=== PATIENT | male | born 1960 | race Two or more races ===

== ENCOUNTER 2016-10-01 12:44 | Emergency (ER) | payer MEDICAID, OTHER ==
[~2016-10-01] VITALS: Ht 182.9 cm; Wt 77.1 kg
[2016-10-01] MEDS ORDERED: IBUPROFEN600 MG ORAL (13:32)
--- NOTE | 2016-10-01 13:32 | Emergency Room Report ---
History of Present Illness General Chief Complaint: General Complaint Source: Patient Present Illness HPI 56 YO male c/o left arm weakness and paresthesia after waking up this am. pt. slept on floor at his son's house last night. Patient denies previous injury to the shoulder. Patient does report that he had a history of tunnel syndrome. Patient states that compared to this morning his symptoms have decreased in severity. Patient denies pain. Patient denies fevers chills neck pain chest pain, previous injury to the cervical spine. he denies recent trauma or fall. he denies any color changes to the affected extremity. Denies gross loss of sensation or gross motor movements of the extremities, incontinence of bowel or bladder. Denies CP, Palpitations, LOC, AMS, dizziness, Changes in Vision, Sensation, paresthesias, or a sudden severe headache. Allergies: Coded Allergies: No Known Allergies (Unverified , 10/01/16) Patient History Past Medical History: see triage record Past Surgical History: none Pertinent Family History: none Immunizations: UTD Reviewed Nursing Documentation: PMH: Agreed, PSxH: Agreed Nursing Documentation-PMH Past Medical History: No History, Except For Hx Cardiac Problems: No - CHRONIC BACK PAIN History Of Psychiatric Problem: Yes - ANXIETY Review of Systems All Other Systems: negative except mentioned in HPI Physical Exam Vital Signs Date Time Temp Pulse Resp B/P Pulse Ox O2 Delivery O2 Flow Rate FiO2 10/01/16 13:07 98.2 93 20 111/71 99 Sp02 EP Interpretation: reviewed, normal General Appearance: no apparent distress, alert, GCS 15, non-toxic Head: normocephalic, atraumatic Eyes: bilateral eye PERRL, bilateral eye normal inspection ENT: hearing grossly normal, normal pharynx, no angioedema, normal voice Neck: full range of motion, supple/symm/no masses Respiratory: chest non-tender, lungs clear, normal breath sounds, speaking full sentences Cardiovascular #1: regular rate, rhythm, no edema Cardiovascular #2: 2+ radial (R), 2+ radial (L) Musculoskeletal: back normal, gait/station normal, normal range of motion, non- tender, no calf tenderness, other - left arm weakness, FROM Neurologic: alert, oriented x3, responsive, motor strength/tone normal, sensory intact, cerebellar normal, normal gait, speech normal, no pronator, motor weakness - left arm weakness/delay, negative gusman's Psychiatric: judgement/insight normal, memory normal, mood/affect normal, no suicidal/homicidal ideation Reflexes: 2+ bicep (R), 2+ bicep (L) Skin: normal color, no rash, warm/dry, well hydrated Lymphatic: no adenopathy Medical Decision Making PA Attestation Dr. Robbins is my supervising Physician whom patient management has been discussed with. Diagnostic Impression: Primary Impression: Radial nerve palsy Qualified Codes: G56.32 - Lesion of radial nerve, left upper limb ER Course 56 YO male c/o left arm weakness and paresthesia after waking up this am. pt. slept on floor at his son's house last night. Patient denies previous injury to the shoulder. Patient does report that he had a history of tunnel syndrome. Patient states that compared to this morning his symptoms have decreased in severity. Patient denies pain. Patient denies fevers chills neck pain chest pain, previous injury to the cervical spine. he denies recent trauma or fall. he denies any color changes to the affected extremity Ddx considered but are not limited to Radial nerve palsy, stroke, [place], Fracture , dislocation, contusion, Sprain/Strain/Spasm, Vital signs: are WNL, pt. is afebrile, pt. is non-tachycardic, NAD, non-toxic in appearance. H&PE are most consistent with radial nerve palsy. pulses are 2+ and equal bilaterally. , no facial droop, negative pronator drift. ORDERS: - X-ray not required at this time, no trauma, no bony ttp. ED INTERVENTIONS: - Pt given re-assurance. DISCHARGE: At this time pt. is stable for d/c to home. Will provide printed patient care instructions, and any necessary prescriptions. Care plan and follow up instructions have been discussed with the patient prior to discharge. Last Vital Signs Date Time Temp Pulse Resp B/P Pulse Ox O2 Delivery O2 Flow Rate FiO2 10/01/16 13:07 98.2 93 20 111/71 99 Disposition: HOME, SELF-CARE Condition: Stable Scripts Ibuprofen* (MOTRIN*) 600 Mg Tablet 600 MG ORAL THREE TIMES A DAY, #30 TAB 0 Refills Prov: Hina Luna 10/01/16 Patient Instructions: Radial Nerve Palsy Additional Instructions: Take medications as directed. Follow up with PCP in 3-5 days Return sooner to ED if new symptoms occur, or current symptoms become worse. - Please note that this Emergency Department Report was dictated using [employer] field worker technology software, occasionally this can lead to erroneous entry secondary to interpretation by the dictation equipment. Hina Luna Oct 01, 2016 13:32
[2016-10-01 13:38] VITALS: BP 111/71
== END 2016-10-01 14:00 | disposition home or self-care (01) ==
LOC: EMR 13:50
DX: G56.32 Lesion of radial nerve, left upper limb (principal)
CPT/HCPCS: 99283

== ENCOUNTER 2017-10-08 17:09 | Emergency (ER) | payer MEDICAID, OTHER ==
[~2017-10-08] VITALS: Ht 170.2 cm; Wt 63.5 kg
[~2017-10-08 17:09] MED LIST: IBUPROFEN600 MG ORAL
[2017-10-08 17:17] VITALS: BP 122/68
--- NOTE | 2017-10-08 17:58 | Emergency Room Report ---
History of Present Illness General Chief Complaint: Pain Source: Patient Present Illness HPI 57 yo male patient presents to ER complaining of rib for a "few hours". Patient reports his hat feel in metal trash can and when he went to get it out he slipped and hit his ribs. Reports pain with deep inspiration. Denies difficulty breathing, able to speak full sentences without difficulty. Reports did not hit head, no LOC. Also complains of rash on bilateral forearms and hands. Denies on palms of hands. Denies contacts with similar symptoms. Denies pain, itching vesicles, open ulcers, blisters. Denies bleeding from sites. Denies fever, SOB, abdominal pain. Allergies: Coded Allergies: No Known Allergies (Unverified , 10/01/16) Patient History Past Medical History: see triage record Reviewed Nursing Documentation: PMH: Agreed, PSxH: Agreed Nursing Documentation-PMH Past Medical History: No History, Except For Hx Cardiac Problems: No - CHRONIC BACK PAIN Review of Systems All Other Systems: negative except mentioned in HPI Physical Exam Vital Signs Date Time Temp Pulse Resp B/P (MAP) Pulse Ox O2 Delivery O2 Flow Rate FiO2 10/08/17 17:17 98.1 79 18 122/68 95 Room Air 98.1 Sp02 EP Interpretation: reviewed, normal General Appearance: well appearing, no apparent distress, alert, GCS 15, non- toxic Head: normocephalic, atraumatic Eyes: bilateral eye normal inspection, bilateral eye PERRL ENT: hearing grossly normal, normal pharynx, no angioedema, normal voice, uvula midline, moist mucus membranes Neck: full range of motion Respiratory: lungs clear, normal breath sounds, no rhonchi, no respiratory distress, no accessory muscle use, no wheezing, speaking full sentences, other - chest TTP, no erythema, no deformity, <1cm mild ecchymosis Cardiovascular #1: regular rate, rhythm, no edema Gastrointestinal: non tender, soft, no mass, non-distended, no guarding, no rebound Musculoskeletal: back normal, digits/nails normal, gait/station normal, normal range of motion, non-tender Neurologic: alert, oriented x3, responsive, motor strength/tone normal, sensory intact Skin: other - diffuse maculopapular rash on bilateral forerams, no TTP, no scaling, no linear burrows, no central clearing Lymphatic: no adenopathy Medical Decision Making PA Attestation Dr. Iglesias is my supervising Physician whom patient management has been discussed with. Diagnostic Impression: Primary Impression: Rash and nonspecific skin eruption Additional Impression: Rib contusion ER Course Pt. presents to the ED c/o rash and rib pain. Ddx considered but are not limited to atopic dermatitis, scabies, shingles, hives,allergic reaction. DDx considered but are not limited to fracture, contusion, sprain, strain. Vital signs: are WNL, pt. is afebrile Ordered rib xray. ER COURSE: Xray of ribs negative for fracture per the preliminary ready. Informed patient likely contusion causing pain, take NSAIDs for pain. Followup with primary care provider for further treatment. Return to ER immediately for chest pain, SOB, difficulty breathing. Denies itching, pain, or bleeding. Informed patient that rash may be scabies, will provide permethrin treatment. Followup with primary care provider for further treatment. Return to ER for new or worsening of symptoms. Take Benadryl OTC if itching symptoms develop. Patient reports understanding and agreement to treatment plan. DISCHARGE: -Rx given for Permethrin cream. -Rx provided for Ibuprofen for pain At this time pt. is stable for d/c to home. Patient resting comfortably, in no acute distress, nontoxic appearing. Will provide printed patient care instructions, and any necessary prescriptions. Care plan and follow up instructions have been discussed with the patient prior to discharge. Patient provided with list of healthcare clinics to establish primary care physician. Patient instructed to follow-up with primary care provider in 3 - 5 days. Patient questions asked and answered. ER precautions given. Patient instructed to return to ER immediately for any new or worsening of symptoms including but not limited to increasing SOB, persistent fever. Other X-Ray Diagnostic Results Other X-Ray Diagnostic Results : X-Ray ordered: ribs # of Views/Limited Vs Complete: Complete Indication: Pain EP Interpretation: Yes PA Xray: Interpretation reviewed, by supervising MD, and agrees with findings. Interpretation: no dislocation, no soft tissue swelling, no fractures Impression: No acute disease MARIANA Scribe Text Adam Andre PA-C Last Vital Signs Date Time Temp Pulse Resp B/P (MAP) Pulse Ox O2 Delivery O2 Flow Rate FiO2 10/08/17 17:17 98.1 79 18 122/68 95 Room Air 98.1 Disposition: HOME, SELF-CARE Condition: Stable Scripts Ibuprofen* (MOTRIN*) 600 Mg Tablet 600 MG ORAL Q8H Y for For Pain, #30 TAB 0 Refills Prov: Slick Andre 10/08/17 Permethrin* (ELIMITE*) 60 Gm Cream..g. 1 APPLIC TOPIC ONCE, #60 GM 0 Refills Apply cream from head to toe; leave on for 8-14 hours before washing off with water; may reapply in 1 week if live mites appear. Prov: Slick Andre 10/08/17 Patient Instructions: Rash, Rib Contusion Additional Instructions: Followup with primary care provider in 3 -5 days. Take medications as directed. Patient questions asked and answered. ER precautions given, patient instructed to return to ER immediately for any new or worsening of symptoms including but not limited to chest pain, SOB, difficulty breathing. Slick Andre Oct 08, 2017 17:58
[2017-10-08 18:50] VITALS: BP 120/79
[2017-10-08] MEDS ORDERED: IBUPROFEN600 MG ORAL (18:54)
[2017-10-08] MEDS ORDERED: PERMETHRIN60 GM TOPIC (18:54)
--- NOTE | 2017-10-09 10:48 | Diagnostic Imaging Report ---
Indication: Pain, status post fall Technique: Multiple views of the left ribs Comparison: none Findings: No acute fractures. No pneumothorax. Lungs and pleural spaces are clear. The heart size is normal. There is minimal thoracic scoliotic deformity Impression: No acute bony trauma
== END 2017-10-08 20:09 | disposition home or self-care (01) ==
LOC: EMR 19:00
DX: R21 Rash and other nonspecific skin eruption (principal); S20.219A Contusion of unspecified front wall of thorax, initial encounter; W01.0XXA Fall on same level from slipping, tripping and stumbling without subsequent striking against object, initial encounter; Y92.9 Unspecified place or not applicable
CPT/HCPCS: 99284